=== PATIENT | female | born 1990 | race Caucasian/White ===

== ENCOUNTER 2019-01-18 10:33 | Observation (INO) ==
[2019-01-18 11:30] LABS: Bilirubin,Urine Small (Negative); Blood,Urine Large (Negative); Clarity,Urine Cloudy (Clear); Color,Urine Red (Yellow); Glucose,Urine (UA) Normal (Normal); Ketones,Urine Trace mg/dL (Negative); Leukocyte Esterase,Urine Moderate (Negative); Nitrite,Urine Negative (Negative); Protein,Urine 100 mg/dL (Neg-Trace); Specific Gravity,Urine 1.026 (1.010-1.025); Urobilinogen,Urine Normal (Normal)
--- NOTE | 2019-01-18 11:39 | Emergency Department Note ---
Disposition Clinical Impression: Vaginal bleeding Disposition: Admitted As Inpatient Condition: Fair Time of Disposition: 12:39 General Adult HPI - General Chief complaint: ED Vaginal Bleeding Stated complaint: Vaginal Bleeding Time Seen by Provider: 01/18/19 10:38 Source: patient Mode of arrival: ambulatory Limitations: no limitations Nursing Notes Reviewed: Yes Vital Signs Reviewed: Yes - History of Present Illness HPI Narrative: Patient is a 28-year-old female with no pertinent past medical history presents to the ED for evaluation of vaginal bleeding has been going on for 5 months. Over the past 5 months patient states she has been using at least one pad per day. Over the past 2 weeks the patient states that she has been going through 1 pad per an hour. She denies any pain. She states that she does have the Nexplanon Implant which was placed one year ago. States she was also taking Phentermine which she stopped taking one month ago because she thought that was causing her to have breakthrough bleeding. States she is also been on other medications through her PERFORMANCE IMPROVEMENT MANAGER that has not helped with her symptoms. She denies any easy bleeding, coagulopathy or family history of bleeding disorder. Pain Scale: 5 - Related Data Allergies Allergy/AdvReac Type Severity Reaction Status Date / Time No Known Allergies Allergy Verified 01/18/19 10:40 All systems ED: reviewed and negative except as stated. Review of Systems: As Per HPI Constitutional: Denies: fever, chills Cardiovascular: Denies: chest pain, palpitations, dyspnea on exertion Respiratory: Denies: cough, dyspnea Gastrointestinal: Denies: abdominal pain, nausea, vomiting, diarrhea Genitourinary: Reports: abnormal menses. Denies: urgency, dysuria, frequency, hematuria Integumentary: Denies: rash Past Medical History - Past Medical History Attestation: Yes The following information was validated with the patient. Medical history: Reports: no medical history Psychiatric history: Reports: no psych history - Social History Smoking Status: Never smoker Smokeless Tobacco Status: No Alcohol use: Reports: none Drug use: Reports: none Physical Exam - General Limitations: no limitations General appearance: alert, in no apparent distress - Head Head exam: atraumatic, normocephalic, normal inspection - Eye Eye exam: Present: normal appearance, PERRL, EOMI - ENT ENT exam: normal exam, normal oropharynx, mucous membranes moist - Neck Neck exam: Present: normal inspection, full ROM, trachea midline - Chest Chest inspection: Present: normal inspection, symmetric chest wall rise - Respiratory Respiratory exam: Present: normal lung sounds bilaterally - Cardiovascular Cardiovascular exam: Present: normal rhythm, tachycardia, +S1, +S2 - Abdominal Exam Abdominal exam: Present: soft, Non-Tender. Absent: tenderness, distention, guarding, rebound, rigidity - Female Materials Associate present during exam: Yes (Aniyah Bennett RN) External Exam: Present: normal external exam Speculum Exam: Present: cervical OS closed, vaginal bleeding. Absent: erythema, vaginal discharge, cervical discharge, foreign body, tissue, laceration - Extremities Exam Extremities exam: Present: normal inspection, full ROM. Absent: tenderness, pedal edema - Back Exam Back exam: Present: normal inspection, full ROM. Absent: tenderness - Neurological Exam Neurological exam: Present: alert, oriented X3 - Psychiatric Psychiatric exam: Present: normal affect, normal mood - Skin Skin exam: Present: warm, dry, intact, pallor Course Course Narrative: Patient's hemoglobin was 5. Pelvic exam revealed pooling of blood in the posterior fornix. I discussed the patient's case with the PERFORMANCE IMPROVEMENT MANAGER on-call and paula landers with the [facility] and they accepted the patient for admission states they will order medication to help with the bleeding. I updated the patient. 2 units of packed red blood cells were ordered. Vital Signs Temperature 98.2 F 01/18/19 10:40 Pulse Rate 128 01/18/19 10:40 Respiratory Rate 20 01/18/19 10:40 Blood Pressure 143/95 01/18/19 10:40 O2 Sat by Pulse Oximetry 100 01/18/19 10:40 Temperature 98.8 F 01/18/19 13:42 Pulse Rate 109 01/18/19 13:42 Respiratory Rate 16 01/18/19 13:42 Blood Pressure 130/84 01/18/19 13:42 O2 Sat by Pulse Oximetry 100 01/18/19 13:42 Oxygen Delivery Oxygen Delivery Room Air Medical Decision Making - Medical Records Medical records reviewed: Yes I reviewed the patient's medical records. - Lab Data Lab results reviewed: Yes I reviewed the patient's lab results. Result diagrams: 01/18/19 11:24 Lab Results 01/18/19 01/18/19 01/18/19 Range/Units 11:22 11:22 11:24 WBC 5.6 (4.3-11.1) K/mcL RBC 2.11 L (3.82-4.97) M/mcL Hgb 5.1 L* (11.5-15.4) g/dL Hct 18.5 L (35.3-44.9) % MCV 87.7 (83.0-100.0) fL MCH 24.2 L (28.0-33.3) pg MCHC 27.6 L (31.6-35.5) g/dL RDW 15.3 H (11.5-14.5) % Plt Count 204 (140-400) K/mcL MPV 11.6 (9.4-12.4) fL Immature Gran % 0.4 (0-4) % Seg Neutrophils % 72.9 % Lymphocytes % 20.4 % Monocytes % 5.9 % Eosinophils % 0.4 % Basophils % 0.0 % Neutrophils # 4.1 (1.6-8.9) K/mcL Lymphocytes # 1.1 (0.6-4.6) K/mcL Monocytes # 0.3 (0.0-1.3) K/mcL Eosinophils # 0.0 (0.0-0.6) K/mcL Basophils # 0.0 (0.0-0.2) K/mcL Platelet Estimate Normal (Normal) Hypochromasia Present A (Not Present) Urine Color Red A (Yellow) Urine Clarity Cloudy A (Clear) Urine pH 5.0 (5.0-8.0) pH Units Ur Specific [place] 1.026 H (1.010-1.025) Urine Protein 100 H (Neg-Trace) mg/dL Urine Glucose (UA) Normal (Normal) mg/dL Urine Ketones Trace H (Negative) mg/dL Urine Blood Large H (Negative) Urine Nitrite Negative (Negative) Urine Bilirubin Small H (Negative) Urine Urobilinogen Normal (Normal) mg/dL Ur Leukocyte Esterase Moderate H (Negative) Urine Microscopic RBC TNTC H (0-3) per hpf Urine Microscopic WBC 0-3 (0-3) per hpf Ur Squamous Epith Cells Few (None-Few) per lpf Urine Bacteria Moderate H (None-Few) per hpf Urine Test Negative (Negative) Blood Type Antibody Screen Crossmatch 01/18/19 Range/Units 11:24 WBC (4.3-11.1) K/mcL RBC (3.82-4.97) M/mcL Hgb (11.5-15.4) g/dL Hct (35.3-44.9) % MCV (83.0-100.0) fL MCH (28.0-33.3) pg MCHC (31.6-35.5) g/dL RDW (11.5-14.5) % Plt Count (140-400) K/mcL MPV (9.4-12.4) fL Immature Gran % (0-4) % Seg Neutrophils % % Lymphocytes % % Monocytes % % Eosinophils % % Basophils % % Neutrophils # (1.6-8.9) K/mcL Lymphocytes # (0.6-4.6) K/mcL Monocytes # (0.0-1.3) K/mcL Eosinophils # (0.0-0.6) K/mcL Basophils # (0.0-0.2) K/mcL Platelet Estimate (Normal) Hypochromasia (Not Present) Urine Color (Yellow) Urine Clarity (Clear) Urine pH (5.0-8.0) pH Units Ur Specific [place] (1.010-1.025) Urine Protein (Neg-Trace) mg/dL Urine Glucose (UA) (Normal) mg/dL Urine Ketones (Negative) mg/dL Urine Blood (Negative) Urine Nitrite (Negative) Urine Bilirubin (Negative) Urine Urobilinogen (Normal) mg/dL Ur Leukocyte Esterase (Negative) Urine Microscopic RBC (0-3) per hpf Urine Microscopic WBC (0-3) per hpf Ur Squamous Epith Cells (None-Few) per lpf Urine Bacteria (None-Few) per hpf Urine Test (Negative) Blood Type A POSITIVE Antibody Screen NEGATIVE Crossmatch See Detail
[2019-01-18 11:43] LABS: Bacteria,Urine Moderate per hpf (None-Few); RBC,Urine TNTC per hpf (0-3); Squamous Epithelial Cell,Urine Few per lpf (None-Few)
[2019-01-18 11:44] LABS: Eosinophils % 0.4 %; Immature Granulocytes % 0.4 % (0-4)
[2019-01-18 11:45] LABS: WBC,Urine 0-3 per hpf (0-3)
[2019-01-18 11:45] LABS: Hematocrit 18.5 % (35.3-44.9); Lymphocytes # 1.1 K/mcL (0.6-4.6); Lymphocytes % 20.4 %; Mean Corpuscular HGB Conc 27.6 g/dL (31.6-35.5); Mean Corpuscular Hemoglobin 24.2 pg (28.0-33.3); Mean Corpuscular Volume 87.7 fL (83.0-100.0); Mean Platelet Volume 11.6 fL (9.4-12.4); Monocytes # 0.3 K/mcL (0.0-1.3); Monocytes % 5.9 %; Neutrophils # 4.1 K/mcL (1.6-8.9); Platelet Count 204 K/mcL (140-400); Red Blood Count 2.11 M/mcL (3.82-4.97); Red Cell Distribution Width 15.3 % (11.5-14.5); Segmented Neutrophils % 72.9 %; White Blood Count 5.6 K/mcL (4.3-11.1)
[2019-01-18 11:51] LABS: Hemoglobin 5.1 g/dL (11.5-15.4)
[2019-01-18 12:09] LABS: Hypochromasia Present (Not Present); Platelet Estimate Normal (Normal)
--- NOTE | 2019-01-18 12:53 | Emergency Department Note ---
Disposition Clinical Impression: Vaginal bleeding Disposition: Admitted As Inpatient Condition: Fair Referrals: Jim Avendano MD [Primary Care Provider] - Forms: ED Satisfaction Letter Time of Disposition: 12:39 General Adult HPI - General Chief complaint: ED Vaginal Bleeding Stated complaint: Vaginal Bleeding Time Seen by Provider: 01/18/19 10:38 Source: patient Mode of arrival: ambulatory Limitations: no limitations - History of Present Illness Pain Scale: 5 - Related Data Allergies Allergy/AdvReac Type Severity Reaction Status Date / Time No Known Allergies Allergy Verified 01/18/19 10:40 Constitutional: Denies: fever, chills Cardiovascular: Denies: chest pain, palpitations, dyspnea on exertion Respiratory: Denies: cough, dyspnea Gastrointestinal: Denies: abdominal pain, nausea, vomiting, diarrhea Genitourinary: Reports: abnormal menses. Denies: urgency, dysuria, frequency, hematuria Integumentary: Denies: rash Past Medical History - Past Medical History Medical history: Reports: no medical history Psychiatric history: Reports: no psych history - Social History Smoking Status: Never smoker Smokeless Tobacco Status: No Alcohol use: Reports: none Drug use: Reports: none Physical Exam - General Limitations: no limitations General appearance: alert, in no apparent distress Course Vital Signs Temperature 98.2 F 01/18/19 10:40 Pulse Rate 128 01/18/19 10:40 Respiratory Rate 20 01/18/19 10:40 Blood Pressure 143/95 01/18/19 10:40 O2 Sat by Pulse Oximetry 100 01/18/19 10:40 Temperature 98.2 F 01/18/19 10:40 Pulse Rate 119 01/18/19 11:34 Respiratory Rate 16 01/18/19 11:34 Blood Pressure 137/79 01/18/19 11:34 O2 Sat by Pulse Oximetry 100 01/18/19 11:34 Oxygen Delivery Oxygen Delivery Room Air Medical Decision Making - Lab Data Result diagrams: 01/18/19 11:24 Lab Results 01/18/19 01/18/19 01/18/19 Range/Units 11:22 11:22 11:24 WBC 5.6 (4.3-11.1) K/mcL RBC 2.11 L (3.82-4.97) M/mcL Hgb 5.1 L* (11.5-15.4) g/dL Hct 18.5 L (35.3-44.9) % MCV 87.7 (83.0-100.0) fL MCH 24.2 L (28.0-33.3) pg MCHC 27.6 L (31.6-35.5) g/dL RDW 15.3 H (11.5-14.5) % Plt Count 204 (140-400) K/mcL MPV 11.6 (9.4-12.4) fL Immature Gran % 0.4 (0-4) % Seg Neutrophils % 72.9 % Lymphocytes % 20.4 % Monocytes % 5.9 % Eosinophils % 0.4 % Basophils % 0.0 % Neutrophils # 4.1 (1.6-8.9) K/mcL Lymphocytes # 1.1 (0.6-4.6) K/mcL Monocytes # 0.3 (0.0-1.3) K/mcL Eosinophils # 0.0 (0.0-0.6) K/mcL Basophils # 0.0 (0.0-0.2) K/mcL Platelet Estimate Normal (Normal) Hypochromasia Present A (Not Present) Urine Color Red A (Yellow) Urine Clarity Cloudy A (Clear) Urine pH 5.0 (5.0-8.0) pH Units Ur Specific [place] 1.026 H (1.010-1.025) Urine Protein 100 H (Neg-Trace) mg/dL Urine Glucose (UA) Normal (Normal) mg/dL Urine Ketones Trace H (Negative) mg/dL Urine Blood Large H (Negative) Urine Nitrite Negative (Negative) Urine Bilirubin Small H (Negative) Urine Urobilinogen Normal (Normal) mg/dL Ur Leukocyte Esterase Moderate H (Negative) Urine Microscopic RBC TNTC H (0-3) per hpf Urine Microscopic WBC 0-3 (0-3) per hpf Ur Squamous Epith Cells Few (None-Few) per lpf Urine Bacteria Moderate H (None-Few) per hpf Urine Test Negative (Negative) Blood Type Antibody Screen Crossmatch 01/18/19 Range/Units 11:24 WBC (4.3-11.1) K/mcL RBC (3.82-4.97) M/mcL Hgb (11.5-15.4) g/dL Hct (35.3-44.9) % MCV (83.0-100.0) fL MCH (28.0-33.3) pg MCHC (31.6-35.5) g/dL RDW (11.5-14.5) % Plt Count (140-400) K/mcL MPV (9.4-12.4) fL Immature Gran % (0-4) % Seg Neutrophils % % Lymphocytes % % Monocytes % % Eosinophils % % Basophils % % Neutrophils # (1.6-8.9) K/mcL Lymphocytes # (0.6-4.6) K/mcL Monocytes # (0.0-1.3) K/mcL Eosinophils # (0.0-0.6) K/mcL Basophils # (0.0-0.2) K/mcL Platelet Estimate (Normal) Hypochromasia (Not Present) Urine Color (Yellow) Urine Clarity (Clear) Urine pH (5.0-8.0) pH Units Ur Specific [place] (1.010-1.025) Urine Protein (Neg-Trace) mg/dL Urine Glucose (UA) (Normal) mg/dL Urine Ketones (Negative) mg/dL Urine Blood (Negative) Urine Nitrite (Negative) Urine Bilirubin (Negative) Urine Urobilinogen (Normal) mg/dL Ur Leukocyte Esterase (Negative) Urine Microscopic RBC (0-3) per hpf Urine Microscopic WBC (0-3) per hpf Ur Squamous Epith Cells (None-Few) per lpf Urine Bacteria (None-Few) per hpf Urine Test (Negative) Blood Type A POSITIVE Antibody Screen NEGATIVE Crossmatch See Detail Attestation Statement - Attestation Attestation: I examined this patient and my medical decision-making was reviewed with the Resident Physician. I agree with the documented findings, disposition and treatment plan as described except to the extent set forth below. Vaginal bleeding, appears pale in the ED with palpable conjunctiva. Tachycardic but with normal blood pressure. Hemoglobin 5. Accepted by [employer]. Risk and benefits of transfusion discussed with the patient by Dr. Bell as well as by me.
[2019-01-18] MEDS ORDERED: 0.9 % Sodium Chloride 250 ML ONE ×3 (13:07→22:43)
[2019-01-18] MEDS ORDERED: 0.9 % Sodium Chloride 1,000 ML IVC SCH (13:15)
--- NOTE | 2019-01-18 15:22 | OB/GYN History & Physical ---
Date of Encounter: 01/19/19 Time of Encounter: 15:17 Assessment and Plan (1) Acute blood loss anemia Current visit: Yes Status: Acute Admit to observation for severe anemia due to abnormal uterine bleeding. - Transfuse 4 Units PRBC's - Recheck CBC 4 hours after last unit is infused. - IV Premarin as ordered x 3 doses - Transition to PO Provera (2) Vaginal bleeding Current visit: Yes Status: Acute Pt will be given premarin Q6 x 3 doses Will transition to PO Provera Plan for outpatient removal of Nexplanon if patient desires upon discharge. Plan of care made in collaboration with Dr. Bustos (3) Nexplanon in place Current visit: Yes Status: Acute Consider removal on an outpatient basis History of Present Illness Chief complaint: vaginal bleeding HPI: Ms. Wu is a 28 year old female who presents with complaints of lightheadedness, tachycardia, vaginal bleeding. She states that she has had some vaginal bleeding since August 2018. She has had the nexplanon since February 2018. Since insertion of the Nexplanon she has had some mild spotting however, when she began taking Adipex on 08/28/2018 she says that the vaginal bleeding became worse. Approximately one week ago she started passing large clots which she states were as large as a golf ball at times. She also noticed that her heart rate would go up anytime she would exert herself. Today she noticed that after she walked outside to get the mail she laid down to see if she could get her heart rate to come down and it did not come below 120. After this she called h er [facility] who advised her to report to the ER. In the ER the patient was found to have a hemoglobin of 5, so she was admitted for blood transfusion and further treatment. 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 She takes no daily m edications. She has no known allergies. She has never been hospitalized outside of surgeries. She states that she had the Nexplanon implanted in an attempt to help control her heavy periods. She states that she has always had heavy periods. Social history: She states that she eats a regular diet, does not really have a regular exercise plan, denies any illicit drugs or drugs not prescribed to her, denies any use of IV drug use ever, she does not smoke and does not use chewing tobacco and has no history of either. She works as a nurse at the [employer]. She may drink up to one cup of coffee per day. She is not sexually active and has never been sexually active. In addition to that documented in the HPI above, the additional ROS was obtained: Constitutional: Denies fevers or chills Eyes: Denies vision changes ENMT: Denies sore throat CV: Denies chest pain Resp: Reports exertional SOB GI: Denies vomiting or diarrhea Reports: lower abdominal cramping : Denies painful urination Reports: bloody vaginal discharge Neuro: Denies new numbness or tingling or weakness Reports: lightheadedness Endocrine: Denies unexpected weight loss Past Med Surg Social Fam HX - Past Medical History Source: patient Medical history: no medical history Psychiatric history: no psych history - Past Surgical History Surgical History: other (tonsilectomy as a child, other abdominal surgery (unspecified)) - Social History Smoking Status: Never smoker Smokeless Tobacco Status: No Alcohol use: none Drug use: none Occupational status: employed Current living situation: Home - Independent Activity Level: Independent ambulation Recent Out of Country Travel Within the Last 8 Weeks: No Exposure or Possible Exposure to Illness During Travel: No Obstetrical History - Pregnancies : 0 Para: 0 Medications and Allergies Allergy/AdvReac Type Severity Reaction Status Date / Time No Known Allergies Allergy Verified 01/18/19 10:40 Review of System OB - Constitutional Constitutional ROS IM: chills - Respiratory Respiratory: dyspnea on exertion - Gastrointestinal Gastrointestinal: cramping - Genitourinary Genitourinary: abnormal vaginal bleeding Exam - Vital Signs Vital signs: Initial Vital Signs Temp Pulse Resp BP Pulse Ox 98.2 F 128 20 143/95 100 01/18/19 10:40 01/18/19 10:40 01/18/19 10:40 01/18/19 10:40 01/18/19 10:40 - Constitutional Constitutional: well developed, well nourished - HEENT HEENT: Pallor - Neck Neck exam: full ROM - Lungs Respiratory exam: CTAB - Abdomen Abdomen: Present: bowel sounds normal, non tender - Extremities Extremities exam: full ROM - Vulva Vulva: bilateral: normal - Vagina Vagina: Present: discharge (scant bleeding) Results Result Diagrams: 01/18/19 11:24 Abnormal lab results RBC 2.11 M/mcL (3.82-4.97) L 01/18/19 11:24 Hgb 5.1 g/dL (11.5-15.4) L* 01/18/19 11:24 Hct 18.5 % (35.3-44.9) L 01/18/19 11:24 MCH 24.2 pg (28.0-33.3) L 01/18/19 11:24 MCHC 27.6 g/dL (31.6-35.5) L 01/18/19 11:24 RDW 15.3 % (11.5-14.5) H 01/18/19 11:24 Present (Not Present) A 01/18/19 11:24 Red (Yellow) A 01/18/19 11:22 Cloudy (Clear) A 01/18/19 11:22 Ur Specific [place] 1.026 (1.010-1.025) H 01/18/19 11:22 100 mg/dL (Neg-Trace) H 01/18/19 11:22 Trace mg/dL (Negative) H 01/18/19 11:22 Large (Negative) H 01/18/19 11:22 Small (Negative) H 01/18/19 11:22 Ur Leukocyte Esterase Moderate (Negative) H 01/18/19 11:22 TNTC per hpf (0-3) H 01/18/19 11:22 Moderate per hpf (None-Few) H 01/18/19 11:22 Crossmatch See Detail 01/18/19 11:24 All other labs normal. - VTE Reasons for not Prescribing Prophylaxis: Treatment not Indicated - Low risk for VTE - Attending Attestation I personally examined this patient and my medical decision making was reviewed with the resident physician. I agree with the documented findings, disposition, and treatment plan as described above. Patient is admitted for abnormal uterine bleeding. She reports a history of heavy menstrual bleeding but what she has been experiencing recently is much worse. She decided to come for evaluation when she started feeling short of breath and was unable to get her heart rate below 110-120 bpm. Plan of care was developed in close collaboration with Dr. Bustos
[2019-01-19] MEDS ORDERED: Ondansetron 4 MG/2 ML VIAL IVP PRN (01:11)
[2019-01-19 05:53] LABS: Basophils % 0.2 %; Eosinophils % 0.6 %; Hematocrit 31.1 % (35.3-44.9); Immature Granulocytes % 0.2 % (0-4); Lymphocytes # 1.7 K/mcL (0.6-4.6); Mean Corpuscular HGB Conc 31.5 g/dL (31.6-35.5); Mean Corpuscular Hemoglobin 26.5 pg (28.0-33.3); Mean Corpuscular Volume 84.1 fL (83.0-100.0); Mean Platelet Volume 11.8 fL (9.4-12.4); Monocytes # 0.5 K/mcL (0.0-1.3); Monocytes % 8.3 %; Neutrophils # 3.2 K/mcL (1.6-8.9); Platelet Count 171 K/mcL (140-400); Red Cell Distribution Width 14.7 % (11.5-14.5); Segmented Neutrophils % 59.7 %; White Blood Count 5.4 K/mcL (4.3-11.1)
[2019-01-19 05:56] LABS: Hemoglobin 9.8 g/dL (11.5-15.4)
[2019-01-19 08:19] VITALS: BP 107/71
--- NOTE | 2019-01-19 09:55 | Discharge Summary ---
Date of Encounter: 01/20/19 Time of Encounter: 09:58 - Discharge Diagnosis (1) Vaginal bleeding Priority: Primary Status: Acute (2) Acute blood loss anemia Priority: Secondary Status: Acute (3) Nexplanon in place Priority: Secondary Status: Acute - Discharge Medications Prescriptions: New Megestrol Acetate [Megace] 40 mg PO BID 14 Days tablet Ondansetron ODT [Zofran ODT] 4 mg SL Q6HR PRN #14 tab.rapdis PRN Reason: Nausea Ferrous Sulfate 325 mg PO BIDWM #60 tablet Home Medications: Ferrous Sulfate 325 mg PO BIDWM #60 tablet 01/19/19 [Rx] Megestrol Acetate [Megace] 40 mg PO BID 14 Days tablet 01/19/19 [Rx] Ondansetron ODT [Zofran ODT] 4 mg SL Q6HR PRN #14 tab.rapdis 01/19/19 [Rx] Allergies/Adverse Reactions: Allergy/AdvReac Type Severity Reaction Status Date / Time No Known Allergies Allergy Verified 01/18/19 10:40 Data Procedures and tests throughout hospitalization: Laboratory Tests 01/18/19 01/18/19 01/18/19 11:22 11:22 11:24 WBC 5.6 RBC 2.11 L Hgb 5.1 L* Hct 18.5 L MCV 87.7 MCH 24.2 L MCHC 27.6 L RDW 15.3 H Plt Count 204 MPV 11.6 Immature Gran % 0.4 Seg Neutrophils % 72.9 Lymphocytes % 20.4 Monocytes % 5.9 Eosinophils % 0.4 Basophils % 0.0 Neutrophils # 4.1 Lymphocytes # 1.1 Monocytes # 0.3 Eosinophils # 0.0 Basophils # 0.0 Platelet Estimate Normal Hypochromasia Present A Urine Color Red A Urine Clarity Cloudy A Urine pH 5.0 Ur Specific [place] 1.026 H Urine Protein 100 H Urine Glucose (UA) Normal Urine Ketones Trace H Urine Blood Large H Urine Nitrite Negative Urine Bilirubin Small H Urine Urobilinogen Normal Ur Leukocyte Esterase Moderate H Urine Microscopic RBC TNTC H Urine Microscopic WBC 0-3 Ur Squamous Epith Cells Few Urine Bacteria Moderate H Urine Test Negative Blood Type Antibody Screen Crossmatch 01/18/19 01/19/19 11:24 05:31 WBC 5.4 RBC 3.70 L Hgb 9.8 L D Hct 31.1 L MCV 84.1 MCH 26.5 L MCHC 31.5 L RDW 14.7 H Plt Count 171 MPV 11.8 Immature Gran % 0.2 Seg Neutrophils % 59.7 Lymphocytes % 31.0 Monocytes % 8.3 Eosinophils % 0.6 Basophils % 0.2 Neutrophils # 3.2 Lymphocytes # 1.7 Monocytes # 0.5 Eosinophils # 0.0 Basophils # 0.0 Platelet Estimate Hypochromasia Urine Color Urine Clarity Urine pH Ur Specific [place] Urine Protein Urine Glucose (UA) Urine Ketones Urine Blood Urine Nitrite Urine Bilirubin Urine Urobilinogen Ur Leukocyte Esterase Urine Microscopic RBC Urine Microscopic WBC Ur Squamous Epith Cells Urine Bacteria Urine Test Blood Type A POSITIVE Antibody Screen NEGATIVE Crossmatch See Detail Labs on day of discharge: Labs from last 24 hours 01/19/19 01/18/19 01/18/19 05:31 11:24 11:24 WBC 5.4 5.6 RBC 3.70 L 2.11 L Hgb 9.8 L D 5.1 L* Hct 31.1 L 18.5 L MCV 84.1 87.7 MCH 26.5 L 24.2 L MCHC 31.5 L 27.6 L RDW 14.7 H 15.3 H Plt Count 171 204 MPV 11.8 11.6 Immature Gran % 0.2 0.4 Seg Neutrophils % 59.7 72.9 Lymphocytes % 31.0 20.4 Monocytes % 8.3 5.9 Eosinophils % 0.6 0.4 Basophils % 0.2 0.0 Neutrophils # 3.2 4.1 Lymphocytes # 1.7 1.1 Monocytes # 0.5 0.3 Eosinophils # 0.0 0.0 Basophils # 0.0 0.0 Platelet Estimate Normal Hypochromasia Present A Urine Color Urine Clarity Urine pH Ur Specific [place] Urine Protein Urine Glucose (UA) Urine Ketones Urine Blood Urine Nitrite Urine Bilirubin Urine Urobilinogen Ur Leukocyte Esterase Urine Microscopic RBC Urine Microscopic WBC Ur Squamous Epith Cells Urine Bacteria Urine Test Blood Type A POSITIVE Antibody Screen NEGATIVE Crossmatch See Detail 01/18/19 01/18/19 11:22 11:22 WBC RBC Hgb Hct MCV MCH MCHC RDW Plt Count MPV Immature Gran % Seg Neutrophils % Lymphocytes % Monocytes % Eosinophils % Basophils % Neutrophils # Lymphocytes # Monocytes # Eosinophils # Basophils # Platelet Estimate Hypochromasia Urine Color Red A Urine Clarity Cloudy A Urine pH 5.0 Ur Specific [place] 1.026 H Urine Protein 100 H Urine Glucose (UA) Normal Urine Ketones Trace H Urine Blood Large H Urine Nitrite Negative Urine Bilirubin Small H Urine Urobilinogen Normal Ur Leukocyte Esterase Moderate H Urine Microscopic RBC TNTC H Urine Microscopic WBC 0-3 Ur Squamous Epith Cells Few Urine Bacteria Moderate H Urine Test Negative Blood Type Antibody Screen Crossmatch Date of admission: 01/18/19 12:52 Primary care physician: Jim Avendano MD Discharging clinician: Ramila Pak Anticipated date of discharge: 01/19/19 - Patient Status Disposition: Home, Self-Care Condition: Fair Functional capacity at discharge: independent ambulation Overall status at discharge: patient is progressing back to baseline - Discharge Instructions Follow Up With: Jim Avendano MD [Primary Care Provider] - Addy Moseley MD [Partnered Physician] - 01/21/19 Forms: Work/School Release Additional Instructions: Followup on Monday as previously scheduled - Diet and Activity Activity: increase activity as tolerated Diet: advance to your usual diet Hospital Course DRAG DOWN Reason for admission: other (vaginal bleeding) Hospital course: 28 y/o F G0 presented to ED on 01-18 for vaginal bleeding and shortness of breath . 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 History of abnormal menses with IUD in place. In ED 110 % on RA but tachycardia at 128. Pevlic exam with vaginal bleeding but B-HCG negative and HgB 5.1. Admitted to PROTOZOOLOGIST service and received permarin IV x 3 doses before transitioned to oral . Transfused 4 unties of PRBC with repeat HgB 9.8. Overnights vitals stable with 98% on RA and BP 107/71 and HR 77-96. but emesis x1. Today patient reports nausea after rueda and last BM yesterday normal. She reports that vaginal bleeding has slowed to scant amount. Reports shortness of breath and fatigue has greatly improved. Time Attestation: Total time spent providing and/or coordinating discharge services: Exam - Constitutional Vitals: Temp Pulse Resp BP Pulse Ox 98.1 F 85 12 107/71 98 01/19/19 08:19 01/19/19 08:19 01/19/19 08:19 01/19/19 08:19 01/19/19 08:19 General appearance IM: cooperative, A&O X 3, no acute distress, obese, answers questions appropriately - Respiratory Respiratory exam: Present: CTAB. Absent: accessory muscle use, respiratory distress - Cardiovascular Cardiovascular exam IM: Present: RRR. Absent: diastolic murmur, systolic murmur - GI/Abdominal GI/Abdominal exam IM: normal bowel sounds Additional comments: non tenderer with our rebound or masses palpated - Rectal Rectal exam: deferred - Extremities Exam Extremities exam IM: Present: full ROM, radial pulses palpable and symmetrical. Absent: tenderness - Neurological Exam Neurological exam: altered, oriented X3, no focal deficits - Skin Additional comments: does not appear pale, conjunctiva pink - VTE Reasons for not Prescribing Prophylaxis: Treatment not Indicated - Low risk for VTE - Attending Attestation I examined this patient and my medical decision-making was reviewed with the Resident Physician. I agree with the documented findings, disposition and treatment plan as described. Abdominal exam is benign. Patient states that she feels ready for discharge. Instructions have been given. Medications have been prescribed. Patient has follow-up with Dr. Moseley on 01/21/19. Julia Carreon MD
== END 2019-01-19 13:00 | disposition home or self-care (01) ==
LOC: EMEROOARM 10:33 → 1NENUOBS 10:33
PROVIDERS: ADMIT Obstetrics & Gynecology; ATTEND Obstetrics & Gynecology